=== PATIENT | female | born 2000 | race African-American/Black ===

== ENCOUNTER 2021-09-12 17:05 | Day surgery (SDC) | payer OTHER ==
[2021-09-12 17:59] VITALS: BMI 36.8
[2021-09-12] MEDS ORDERED: hydrALAZINE 20 MG/ML VIAL SLOW IVP PRN (18:45)
== END 2021-09-12 18:51 | disposition home or self-care (01) ==
LOC: CSHLD/OP 17:05
PROVIDERS: ATTEND Family Medicine
DX: O12.03 Gestational edema, third trimester (principal); Z3A.38 38 weeks gestation of pregnancy
CPT/HCPCS: 99283

== ENCOUNTER 2021-09-19 07:55 | Outpatient (CLI) | payer OTHER ==
[2021-09-19 18:14] LABS: SARS-CoV-2 PCR by NAA Not Detected (NotDetected)
== END 2021-09-19 07:56 | disposition home or self-care (01) ==
LOC: CSHLAB 07:55
PROVIDERS: ATTEND Family Medicine
DX: Z20.822 Contact with and (suspected) exposure to COVID-19 (principal)
CPT/HCPCS: U0003; U0005

== ENCOUNTER 2021-09-23 07:00 | Inpatient (IN) | payer OTHER ==
[2021-09-23] MEDS ORDERED: Promethazine HCl 25 MG/ML VIAL IM PRN ×3 (08:04→14:09)
[2021-09-23] MEDS ORDERED: hydrALAZINE 20 MG/ML VIAL SLOW IVP PRN ×2 (08:04→14:09)
[2021-09-23] MEDS ORDERED: Bicitra 30 ML UDCUP PO PRN (08:04)
[2021-09-23] MEDS ORDERED: CEFAZOLIN 2 GM in Premix Bag 1 BAG IVPB SCH (08:04)
[2021-09-23] MEDS ORDERED: Famotidine/PF 20 mg/2ml Vial SLOW IVP PRN (08:04)
[2021-09-23] MEDS ORDERED: Ondansetron PF 4 MG/2 ML Vial IVP PRN ×3 (08:04→14:09)
[2021-09-23 08:23] LABS: Hemoglobin 8.3 g/dL (12.0-15.5); Mean Corpuscular HGB CONC 31.9 g/dL (32.0-36.0); Mean Corpuscular Hemoglobin 26.7 pg (27.0-33.0); Mean Corpuscular Volume 83.6 fl (81.6-98.3); Mean Platelet Volume 9.1 fl (7.4-10.4); Platelet Count 238 10x3/uL (150-450); Red Blood Cell (RBC) Count 3.11 10x6/uL (3.90-5.03); White Blood Cell (WBC) Count 8.5 10x3/uL (3.5-10.5)
[2021-09-23 08:51] VITALS: BMI 36.8
[2021-09-23 09:35] LABS: Hep B Surf Ag Non-Reactive S/CO (NonReactive)
[2021-09-23 09:36] LABS: Syphilis Antibody Index 0.02 S/CO (<1.00 Non-Reactive)
[2021-09-23 09:37] LABS: Syphilis Antibody Nonreactive (Nonreactive)
[2021-09-23 09:47] LABS: HBSAg Index 0.17 S/CO (0-0.99)
[2021-09-23] MEDS ORDERED: ePHEDrine Sulfate 50 MG/10 ML VIAL ONE ×2 (09:52→09:53)
[2021-09-23] MEDS ORDERED: Morphine PF 10 MG/10 ML VIAL ONE (09:52)
[2021-09-23] MEDS ORDERED: Fentanyl 100 MCG/2 ML VIAL ONE (09:52)
[2021-09-23] MEDS ORDERED: Oxytocin 10 UNITS/ML VIAL ONE ×3 (10:31→10:43)
[2021-09-23] MEDS ORDERED: Ketorolac Tromethamine 30 MG/ML VIAL ONE (10:50)
[2021-09-23] MEDS ORDERED: Meperidine HCl/PF 25 MG/ML VIAL SLOW IVP PRN (11:11)
[2021-09-23] MEDS ORDERED: Naloxone HCl 0.4 mg/ml Vial IVP PRN ×2 (11:11)
[2021-09-23] MEDS ORDERED: Hydrocerin (Eucerin) Cream 120 gm Jar TOP PRN (11:11)
[2021-09-23] MEDS ORDERED: Naloxone HCl 0.4 mg/ml Vial IV PRN (11:11)
[2021-09-23] MEDS ORDERED: HYDROmorphone 2 MG/ML VIAL SLOW IVP PRN (11:11)
[2021-09-23] MEDS ORDERED: Fentanyl 100 MCG/2 ML VIAL SLOW IVP PRN (11:11)
[2021-09-23] MEDS ORDERED: Promethazine HCl 25 MG SUPP PR PRN (11:11)
[2021-09-23] MEDS ORDERED: Ondansetron HCl/PF 4 MG/2 ML Vial IVP PRN (11:11)
[2021-09-23] MEDS ORDERED: Communication Order-Pharmacy FS SCH (11:15)
[2021-09-23] MEDS: diphenhydrAMINE 50 MG/ML VIAL IVP PRN ×2 (12:23→21:12)
[2021-09-23] MEDS ORDERED: NS w/ Oxytocin 30 units 500 ML IV SCH (14:09)
[2021-09-23] MEDS ORDERED: diphenhydrAMINE 25 MG CAP PO PRN (14:09)
[2021-09-23] MEDS ORDERED: Boostrix 0.5 ML (Tdap) VIAL IM ONE (14:09)
[2021-09-23] MEDS ORDERED: Lanolin Ointment 7 GM TUBE TOP PRN (14:09)
[2021-09-23] MEDS ORDERED: Bisacodyl 10 MG SUPP PR PRN (14:09)
[2021-09-23] MEDS: Lactated Ringer's 1,000 ML IV SCH ×2 (14:14→16:58)
[2021-09-23] MEDS: Ketorolac Tromethamine 30 MG/ML VIAL IVP SCH ×2 (16:58→23:20)
[2021-09-23] MEDS ORDERED: Ketorolac Tromethamine 30 MG/ML VIAL IVP PRN (17:00)
[2021-09-23] MEDS: Docusate 100 MG CAP PO SCH (21:16)
[2021-09-23] MEDS ORDERED: Meperidine HCl/PF 25 MG/ML VIAL IM PRN (23:15)
[2021-09-24] MEDS: Ferrous Sulfate 325 MG TAB PO SCH ×3 (01:52→21:30)
[2021-09-24] MEDS: Lactated Ringer's 1,000 ML IV SCH ×3 (04:29→07:47)
[2021-09-24 05:00] LABS: Hemoglobin 7.5 g/dL (12.0-15.5); Mean Corpuscular HGB CONC 31.9 g/dL (32.0-36.0); Mean Corpuscular Hemoglobin 26.9 pg (27.0-33.0); Mean Corpuscular Volume 84.2 fl (81.6-98.3); Platelet Count 189 10x3/uL (150-450); RBC Distribution Width 14.1 % (11.5-14.5); Red Blood Cell (RBC) Count 2.79 10x6/uL (3.90-5.03); White Blood Cell (WBC) Count 9.8 10x3/uL (3.5-10.5)
[2021-09-24] MEDS: Ketorolac Tromethamine 30 MG/ML VIAL IVP SCH (05:42)
[2021-09-24] MEDS: Docusate 100 MG CAP PO SCH ×2 (08:44→21:30)
[2021-09-24] MEDS: Prenatal Vitamin 1 TAB PO SCH (08:44)
[2021-09-24] MEDS: HYDROcodone/Acetaminophen 5/325 mg Tablet PO PRN ×3 (08:47→21:30)
[2021-09-24] MEDS: Ibuprofen 800 MG TAB PO SCH ×2 (14:06→21:30)
[2021-09-24] MEDS: Simethicone Chewable 80 MG TAB PO PRN ×2 (16:29→21:30)
[2021-09-24] MEDS ORDERED: Ibuprofen 800 MG TAB PO SCH (22:00)
[2021-09-25] MEDS: Simethicone Chewable 80 MG TAB PO PRN (03:32)
[2021-09-25] MEDS: Ibuprofen 800 MG TAB PO SCH ×3 (05:07→21:03)
[2021-09-25] MEDS: Lactated Ringer's 1,000 ML IV SCH ×3 (07:32→23:28)
[2021-09-25] MEDS: Ferrous Sulfate 325 MG TAB PO SCH ×2 (08:29→21:03)
[2021-09-25] MEDS: Docusate 100 MG CAP PO SCH ×2 (08:29→21:03)
[2021-09-25] MEDS: Prenatal Vitamin 1 TAB PO SCH (08:29)
[2021-09-25] MEDS: Simethicone Chewable 80 MG TAB PO SCH ×5 (08:29→22:41)
[2021-09-25] MEDS: HYDROcodone/Acetaminophen 5/325 mg Tablet PO PRN ×3 (08:30→18:58)
[2021-09-26] MEDS: HYDROcodone/Acetaminophen 5/325 mg Tablet PO PRN ×3 (03:30→12:44)
[2021-09-26] MEDS: Simethicone Chewable 80 MG TAB PO SCH ×4 (03:31→14:54)
[2021-09-26] MEDS: Ibuprofen 800 MG TAB PO SCH ×2 (05:36→14:33)
[2021-09-26] MEDS: Lactated Ringer's 1,000 ML IV SCH ×2 (07:18→17:05)
[2021-09-26] MEDS: Milk Of Magnesia 30 ML UDCUP PO SCH ×3 (08:28→11:23)
[2021-09-26] MEDS: Ferrous Sulfate 325 MG TAB PO SCH (08:29)
[2021-09-26] MEDS: Prenatal Vitamin 1 TAB PO SCH (08:29)
[2021-09-26] MEDS: Docusate 100 MG CAP PO SCH (08:29)
[2021-09-26 11:40] VITALS: BP 138/75; TEMP 99.4
== END 2021-09-26 17:25 | disposition home or self-care (01) | DRG 788 ==
LOC: CSHLD 07:00 → CSHPP 13:50
PROVIDERS: ADMIT Family Medicine; ATTEND Family Medicine
PROC: 10D00Z1 Extraction of Products of Conception, Low, Open Approach (ICD-10-PCS; principal; 2021-09-23)
DX: O99.02 Anemia complicating childbirth (principal); D50.9 Iron deficiency anemia, unspecified; Z3A.40 40 weeks gestation of pregnancy; Z37.0 Single live birth
CPT/HCPCS: 36415; 51702; 85027; 86780; 86850; 86900; 86901; 87340; J0360; J1200; J1885; J2274; J2590; J3010

== ENCOUNTER 2021-11-29 11:06 | Emergency (ER) | payer OTHER ==
[2021-11-29 12:20] LABS: Bilirubin Neg (Negative); Blood, Urine Negative (Negative); Clarity Clear (Clear); Glucose, Urine (Dipstick) Normal (Negative); Ketone, Urine Negative (Negative); Leukocyte Negative (Negative); Nitrite Negative (Negative); Protein, Urine (Dipstick) 15 mg/dl (Neg-Trace); Urobilinogen Normal mg/dL (Less than 2)
[2021-11-29 12:25] LABS: Pregnancy Test - Urine (BHCG) Negative (Negative); Pregu Control Background? CLEAR/WHITE (CLR/WHITE); Pregu Control Bar Appear? YES (CONTROL BAR)
[2021-11-29] MEDS ORDERED: Lidocaine 1% (PF) 30 ML VIAL ONE (14:52)
[2021-11-29] MEDS ORDERED: cefTRIAXone\\ROCEPHIN 500 MG VIAL ONE (14:52)
[2021-11-30 12:10] LABS: Chlamydia by PCR Not Detected (NotDetected); GC by PCR Not Detected (NotDetected)
== END 2021-11-29 15:15 | disposition home or self-care (01) ==
LOC: CSHERS 11:06
DX: N76.0 Acute vaginitis (principal)
CPT/HCPCS: 81003; 81025; 87480; 87491; 87510; 87591; 87660; 96372; 99284; J0696; J2001

== ENCOUNTER 2022-03-13 18:24 | Emergency (ER) | payer OTHER ==
[2022-03-13] MEDS ORDERED: Acetaminophen 500 MG TAB ONE (19:11)
== END 2022-03-13 22:05 | disposition home or self-care (01) ==
LOC: CSHERS 18:24 → EEVIPCON 18:24 → CSHERS 22:05
DX: U07.1 COVID-19 (principal)
CPT/HCPCS: 87804; 99283; U0003; U0005